=== PATIENT | male | born 1980 | race Caucasian/White ===

== ENCOUNTER 2020-06-15 18:42 | Emergency (ER) | payer SELFPAY ==
[~2020-06-15] VITALS: Ht 170.2 cm; Wt 78.9 kg
--- NOTE | 2020-06-15 18:45 | NUR ---
PT AMBULATED TO BED 5.
[2020-06-15 18:57] VITALS: BP 138/93
--- NOTE | 2020-06-15 19:00 | NUR ---
C/O INTERMITTENT SOB WITH SLIGHT COUGH X 3 WEEKS. FEVER X 1 MONTH, SINCE RESOLVED NEGATIVE COVID 1 AND A HALF WEEK AGO, ADDITIONAL NEGATIVE COVID SWAB ABOUT 3 WEEKS AGO. 06/06/20 NEGATIVE CHEST XRAY, LAB WORK SHOWED HIGH CHOLESTEROL 05/16/20 RECEIVED PROMETHAZINE, AZITHROMYOCIN, ALBUTEROL PRESCRIPTION PT STATES COUGH SYRUP HAS HELPED GREATLY. PT TACHYCARDIA AT 128 BPM. TEMP 99.5 ORALLY. PT ALERT AND AWAKE. AMBULATORY. PMH- DENIES NKA
[2020-06-15] MEDS ORDERED: NACL 0.9% 500 ML IV ONE (19:05)
--- NOTE | 2020-06-15 19:10 | NUR ---
REPORT RECEIVED FROM DANDY NOE FOR CONTINUITY OF CARE
--- NOTE | 2020-06-15 19:15 | NUR ---
XRAY AT BEDSIDE
[2020-06-15 19:47] LABS: BASOPHILS % (AUTO) 0.4 % (0.0-2.0); EOSINOPHILS # (AUTO) 0.3 K/uL (0-0.4); EOSINOPHILS % (AUTO) 5.5 % (0.0-4.0); HEMATOCRIT 45.1 % (36-52); HEMOGLOBIN 15.2 g/dL (12.0-18.0); LYMPHOCYTES # (AUTO) 2.4 K/uL (2.0-11.5); LYMPHOCYTES % (AUTO) 43.2 % (20.5-51.1); MEAN CORPUSCULAR HEMOGLOBIN 29 pg (27-31); MEAN CORPUSCULAR HGB CONC 34 g/dL (33-37); MEAN CORPUSCULAR VOLUME 84.8 fL (80-94); MONOCYTES # (AUTO) 0.8 K/uL (0.8-1.0); MONOCYTES % (AUTO) 15.1 % (1.7-9.3); NEUTROPHILS % (AUTO) 35.8 % (42.2-75.2); PLATELET COUNT (AUTO) 324 K/uL (140-450); RED BLOOD CELL COUNT(AUTO) 5.32 MIL/uL (4.20-6.10); WHITE BLOOD COUNT (AUTO) 5.5 K/uL (4.8-10.8)
--- NOTE | 2020-06-15 19:49 | NUR ---
RT AT BEDSIDE
[2020-06-15 19:58] LABS: ALBUMIN 3.7 g/dL (3.4-5.0); CARBON DIOXIDE 28.2 mmol/L (21-32); POTASSIUM 4.2 mmol/L (3.5-5.1); TOTAL BILIRUBIN 0.2 mg/dL (0.0-1.0)
[2020-06-15] MEDS ORDERED: POTASSIUM CHLORIDE 10 MEQ TABER PO ONE (20:45)
--- NOTE | 2020-06-15 20:52 | NUR ---
ERMD AT BEDSIDE
[2020-06-15 21:15] VITALS: BP 138/93
--- NOTE | 2020-06-15 21:15 | NUR ---
Patient discharged with v/s stable. Written and verbal after care instructions given and explained. Patient alert, oriented and verbalized understanding of instructions. Ambulatory with steady gait. All questions addressed prior to discharge. ID band removed. IV Discontiued. Patient advised to follow up with PMD. Rx of AUGMENTIN given. Patient educated on indication of medication including possible reaction and side effects. Opportunity to ask questions provided and answered.
== END 2020-06-15 21:15 | disposition home or self-care (01) ==
LOC: MED 18:42
DX: J18.9 Pneumonia, unspecified organism (principal)
CPT/HCPCS: 36415; 36600; 71045; 80053; 82803; 84484; 85025; 93005; 96360; 99285; J7030; Q0092